=== PATIENT | male | born 1950 | race Caucasian/White ===

== ENCOUNTER 2017-06-10 06:15 | Inpatient (IN) | payer MEDICARE, BC ==
[~2017-06-10] VITALS: Ht 177.8 cm; Wt 105.4 kg
[~2017-06-10 06:15] MED LIST: ALDACTONE25 M1 PO; ASPIRIN EC81 MG PO; AZULFIDINE500 M1 PO; CARAFATE1 G2 PO; CO Q-10100 M2 PO; COZAAR50 M1 PO; FISH OIL + D31 EACH PO; FLOMAX0.4 M1 PO; FOLIC ACID0.8 M1 PO; FUROSEMIDE20 M1 PO; IMODIUM A-D2 M3 PO; LASIX20 M1 PO; MELOXICAM15 M1 PO; MULTIVITAMINS1 EAC7 PO; NITROSTAT0.4 M1; NORVASC2.5 M1 PO; OMEPRAZOLE20 M3 PO; PLAVIX75 M1 PO; POLY-IRON150 M1 PO; TOPROL XL25 M1 PO; ULTRAM50 M1 PO; XANAX0.25 M1 PO; ZOCOR40 M1 PO; ZYLOPRIM100 M1 PO
[2017-06-10 07:29] LABS: PROTHROMBIN TIME 11.7 SECONDS (9.0-13.6)
[2017-06-11 05:52] LABS: HGB-HEMOGLOBIN 11.5 gm/dl (13.5-17.0); IMMATURE GRANULOCYTES ABSOLUTE 0.03 tho/cmm (0-0.03); IMMATURE GRANULOCYTES PERCENT 0.2 % (0-0.3); MCH (MEAN CORPUSCULAR HGB) 30.6 pg (28.0-32.0); MCHC MEAN CORPUSCULAR HGB CONC 33.8 % (32.0-36.0); MCV (MEAN CELL VOLUME) 90.4 fl (82.0-96.0); MEAN PLATELET VOLUME 9.5 cmc (9.4-12.4); MONO % 8.4 % (0-12); MONOCYTE ABSOLUTE COUNT 1.3 tho/cmm (0.0-1.2); NEUTROPHIL ABSOLUTE COUNT 13.6 tho/cmm (1.6-8.0); NEUTROPHIL-AUTOMATED 13.6 tho/cmm (1.6-8.0); NEUTROPHILS % 85.4 % (40-80); PLATELET COUNT 250 tho/cmm (150-450); RED BLOOD COUNT 3.76 mil/cmm (4.40-5.70); WHITE BLOOD COUNT 15.9 tho/cmm (4.0-10.0)
[2017-06-11 06:03] LABS: ANION GAP 11 mmol/L (0-20); BLOOD UREA NITROGEN 14 mg/dl (6-24); CALCIUM 8.3 mg/dl (8.5-10.5); CARBON DIOXIDE-VENOUS 30 mmol/L (22-32); CHLORIDE 106 mmol/l (96-110); CREATININE 0.94 mg/dl (0.60-1.30); GLUCOSE 127 mg/dL (70-110); POTASSIUM 4.5 mmol/L (3.7-5.1); SODIUM 142 mmol/L (135-145); eGFR VALUE FOR BLACK >90 mL/Min
[2017-06-12] MEDS ORDERED: ZOFRAN4 M2 PO (08:19)
[2017-06-12] MEDS ORDERED: MIRALAX17 G2 PO (08:19)
[2017-06-12] MEDS ORDERED: TYLENOL325 M2 PO (08:49)
[2017-06-12] MEDS ORDERED: ROXICODONE5 M2 PO (08:50)
== END 2017-06-12 14:00 | DRG 470 ==
LOC: CARE 06:15 → SHSA 06:19 → 5EA 06:19 → ORE 08:21 → PACU 10:16 → 5EA 11:25
PROVIDERS: Family Medicine; ADMIT Orthopaedic Surgery Foot and Ankle Surgery
PROC: 0SR9029 Replacement of Right Hip Joint with Metal on Polyethylene Synthetic Substitute, Cemented, Open Approach (ICD-10-PCS; principal; 2017-06-10)
DX: M16.11 Unilateral primary osteoarthritis, right hip (principal)
CPT/HCPCS: C1776; J0171; J0690; J1885; J2270; J2795